=== PATIENT | female | born 1980 | race Caucasian/White ===

== ENCOUNTER 2022-01-27 12:47 | Emergency (ER) | payer SELFPAY ==
[2022-01-27 12:55] VITALS: BP 149/65; PULSE 81; RESP 20; TEMP 36.6; O2SAT 100; BMI 20.7
--- NOTE | 2022-01-27 13:06 | DI.RAD.S_ITS ---
PROCEDURE: XR CHEST 2V INDICATIONS: shortness of breath TECHNIQUE: 2 views of the chest were acquired. COMPARISON: None. FINDINGS: Surgical changes and devices: None. Lungs and pleura: Lungs are clear. No pleural effusions or pneumothorax. Mediastinum: Mediastinal contours are normal. Heart size is normal. Bones and chest wall: No suspicious bony abnormalities. Soft tissues appear unremarkable. IMPRESSION: No acute cardiopulmonary process demonstrated radiographically. Dictated by: Faizan Parham M.D. on 01/27/2022 at 13:49 Approved by: Faizan Parham M.D. on 01/27/2022 at 13:49
--- NOTE | 2022-01-27 13:21 | ED_ITS ---
HPI - SOB/Dyspnea General Chief Complaint: Shortness of Breath/Dyspnea Stated Complaint: Swelling in knees down to toes, SOB Time Seen by Provider: 01/27/22 13:16 Source: patient Mode of arrival: Ambulatory Limitations: no limitations History of Present Illness HPI Narrative: Patient is a healthy 41-year-old female who presents with increasing shortness with exertion. For about the last 5 days she has noted increasing bilateral swelling her legs. She has a BMI of 20 and is quite thin but it is obvious she has swelling in her feet. She denies any orthopnea. She denies any fever chills no chest pain. She says that they did travel in [place] car [place] she is not on any control. Mom denies any prior history of blood clot. She says that she is a former smoker of cigarettes but now it is vaping. Related Data Home Medications Medication Instructions Recorded Confirmed No Known Home Medications 01/27/22 01/27/22 Allergies Allergy/AdvReac Type Severity Reaction Status Date / Time Penicillins Allergy Swelling Verified 01/27/22 13:05 of Lip/Tongue/Throat Review of Systems Review of Systems Narrative: GENERAL: Denies chills, fatigue, malaise, fever, sweats, travel HEENT: Denies sinus pain, ear pain, sore throat, difficulty swallowing, neck pain RESPIRATORY: See HPI CARDIOVASCULAR: Denies chest pain, palpitations, orthopnea, edema GASTROINTESTINAL: Denies nausea, vomiting, abdominal pain, diarrhea, constipation, melena. : Denies dysuria, frequency, incontinence, hematuria, urinary retention, flank pain. MUSCULOSKELETAL: Denies weakness, joint pain, or bony pain SKIN: No rash, no erythema, no pruritus NEUROLOGIC: Denies weakness, dizziness, headache, numbness, change in speech, confusion PSYCHIATRIC: No concerning psychosocial issues. 12 point review of systems is negative except for those stated above and HPI Patient History Social History Smoking Status: Former smoker Smoking Status: Former smoker tobacco type: cigarettes and vaping alcohol intake frequency: a few times a week Substance Use Type: does not use Exam Initial Vital Signs Initial Vital Signs: Vital Signs Temperature 98 F 01/27/22 12:55 Pulse Rate 81 01/27/22 12:55 Respiratory Rate 20 01/27/22 12:55 Blood Pressure 149/65 H 01/27/22 12:55 Pulse Oximetry 100 01/27/22 12:55 Oxygen Delivery Method 01/27/22 12:55 GENERAL: Thin well-appearing 42-year-old female no acute distress HEENT: Head atraumatic,EOMI, pupils reactive, face symmetric, moist mucous membranes CARDIOVASCULAR: Regular rate and rhythm without murmurs, rubs or gallops. RESPIRATORY: Breath sounds equal bilaterally, no wheezes rales or rhonchi. ABDOMEN: Soft, nontender. Normoactive bowel sounds all 4 quadrants. No guarding or rebound. EXTREMITIES: Normal range of motion, no clubbing. Bilateral lower extremity edema nonpitting. Neurovascularly intact NEUROLOGICAL: Alert and oriented x4.Normal gait and speech. SKIN: Warm, dry, no laceration, no petechiae, no rashes or lesions. Course Orders Ordered: ED Orders 01/27/22 13:06 XR chest 2V Stat EKG-12 Lead Stat Measure peak expiratory flow ONCE RT Consult Eval and Treat Now 01/27/22 13:09 COVID19 -Nasal RAPID/Pre-Proc Stat 01/27/22 13:35 Complete Blood Count AUTO DIFF Stat Comprehensive Metabolic Panel Stat D Dimer Stat Lactate (Lactic Acid) Stat NT-proBNP (BNP-Adult 18+) Stat Troponin & CK Cardiac Panel Stat Vital Signs Vital signs: Vital Signs - 8 hr 01/27/22 12:55 01/27/22 14:44 Temperature 98 F Pulse Rate 81 71 Respiratory Rate 20 18 Blood Pressure 149/65 H 124/71 Pulse Oximetry 100 100 Oxygen Delivery Method Room Air Room Air MDM - SOB/Dyspnea Lab Data Result diagrams: 01/27/22 13:35 01/27/22 13:35 Labs: Lab Results 01/27/22 01/27/22 01/27/22 Range/Units 13:09 13:35 13:35 WBC 5.0 (4.5-11.0) X10^3/uL RBC 3.78 L (4.0-5.2) X10^6/uL Hgb 12.7 (12.0-16.0) g/dL Hct 36.4 (36-46) % MCV 96.3 (80-100) fL MCH 33.5 (26-34) PG MCHC 34.8 (30-36) % RDW 12.8 (11.6-14.8) % Plt Count 205 (150-400) X10^3/uL Neut % (Auto) 65.0 (50-75) % Lymph % (Auto) 24.6 L (25-40) % Alpine % (Auto) 8.0 (3-14) % Eos % (Auto) 1.9 L (2-4) % Baso % (Auto) 0.5 (0-2) % Neut # (Auto) 3300 (3751-1659) /uL Lymph # (Auto) 1200 (1679-6080) /uL Alpine # (Auto) 400 (0-900) /uL Eos # (Auto) 100 (0-450) /uL Baso # (Auto) 0 (0-100) /uL D-Dimer (<230) ng/mL Sodium 137 (137-145) mmol/L Potassium 4.1 (3.4-5.1) mmol/L Chloride 106 (98-107) mmol/L Carbon Dioxide 26 (22-32) mmol/L BUN 9 (7-17) mg/dL Creatinine 0.63 (0.52-1.04) mg/dL Estimated GFR > 60 (>60) mL/min BUN/Creatinine Ratio 14.3 (6-22) Glucose 110 H (70-100) mg/dL Lactate (0.7-2.1) mmol/L Calcium 8.5 (8.4-10.2) mg/dL Total Bilirubin 0.3 (0.2-1.3) mg/dL AST 34 (14-36) IU/L ALT 22 (<35) IU/L Alkaline Phosphatase 64 (38-126) U/L Total Creatine Kinase 40 (30-135) U/L CK-MB (CK-2) TNP CK-MB (CK-2) Rel Index TNP Troponin I < 0.012 (0.01-0.034) ng/mL NT-Pro-B Natriuret Pep 268 H (<125) pg/mL Total Protein 6.6 (6.3-8.2) g/dL Albumin 3.9 (3.5-5.0) g/dL Globulin 2.7 (1.7-4.1) g/dL Albumin/Globulin Ratio 1.4 (1.0-2.8) SARS-CoV-2 (PCR) Positive H (Negative) 08/02/22 08/02/22 Range/Units 13:35 13:35 WBC (4.5-11.0) X10^3/uL RBC (4.0-5.2) X10^6/uL Hgb (12.0-16.0) g/dL Hct (36-46) % MCV (80-100) fL MCH (26-34) PG MCHC (30-36) % RDW (11.6-14.8) % Plt Count (150-400) X10^3/uL Neut % (Auto) (50-75) % Lymph % (Auto) (25-40) % Alpine % (Auto) (3-14) % Eos % (Auto) (2-4) % Baso % (Auto) (0-2) % Neut # (Auto) (9410-0307) /uL Lymph # (Auto) (4052-1733) /uL Alpine # (Auto) (0-900) /uL Eos # (Auto) (0-450) /uL Baso # (Auto) (0-100) /uL D-Dimer < 200 (<230) ng/mL Sodium (137-145) mmol/L Potassium (3.4-5.1) mmol/L Chloride (98-107) mmol/L Carbon Dioxide (22-32) mmol/L BUN (7-17) mg/dL Creatinine (0.52-1.04) mg/dL Estimated GFR (>60) mL/min BUN/Creatinine Ratio (6-22) Glucose (70-100) mg/dL Lactate 1.7 (0.7-2.1) mmol/L Calcium (8.4-10.2) mg/dL Total Bilirubin (0.2-1.3) mg/dL AST (14-36) IU/L ALT (<35) IU/L Alkaline Phosphatase (38-126) U/L Total Creatine Kinase (30-135) U/L CK-MB (CK-2) CK-MB (CK-2) Rel Index Troponin I (0.01-0.034) ng/mL NT-Pro-B Natriuret Pep (<125) pg/mL Total Protein (6.3-8.2) g/dL Albumin (3.5-5.0) g/dL Globulin (1.7-4.1) g/dL Albumin/Globulin Ratio (1.0-2.8) SARS-CoV-2 (PCR) (Negative) Imaging Data Chest x-ray: Radiologist's Impression: [address] [address] XRay Report Signed Patient: Tiffanie Brantley MR#: [id number] : 1980 Acct:[id number] Age/Sex: 41 / F Date of Service: 01/27/22 Loc: ED Accession Number: [id number] ?? Procedure: XR chest 2V Ordering Provider: Johana Kohler D.O. PROCEDURE:? XR CHEST 2V ? INDICATIONS:? shortness of breath ? TECHNIQUE:? 2 views of the chest were acquired.? ? COMPARISON:? None. ? FINDINGS:? ? Surgical changes and devices:? None.? ? Lungs and pleura:? Lungs are clear.? No pleural effusions or pneumothorax.? ? Mediastinum:? Mediastinal contours are normal.? Heart size is normal.? ? Bones and chest wall:? No suspicious bony abnormalities.? Soft tissues appear unremarkable.? ? IMPRESSION:? No acute cardiopulmonary process demonstrated radiographically. ? ? Dictated by: Faizan Parham M.D. on 01/27/2022 at 13:49 ? ? Approved by: Faizan Parham M.D. on 01/27/2022 at 13:49 ? ECG Data Interpretation: Normal sinus rhythm rate 67 AR interval 144 QRS [address] changes no T- wave inversion no prior MDM Narrative Medical decision making narrative: Patient is very thin she does have swelling of her feet I do not appreciate significant swelling to her knees. Blood work is overall reassuring negative D- dimer negative BNP EKG is normal. She is found to be COVID positive which may may not be contributing. At this time no need for admission. Discharge Plan Departure Patient Disposition: Home Clinical Impression: COVID-19 Instructions: DI for COVID-19 (Suspected or Confirmed ) Activity Restrictions/Additional Instructions: *You have been diagnosed with COVID-19 *What to do: At this time her blood work and x-ray were overall reassuring. You are positive for COVID. Quarantine for about 5 days. Monitor oxygen. *Continue to take medications as directed *Follow up with your primary care provider in 2-3 days or call [phone] *Return to ER if you should have oxygen less than 91%, increasing shortness of breath for not control or any new, worsening or concerning symptoms Prescriptions: No Action No Known Home Medications Visit Report Forms: Patient Portal/API
[2022-01-27 13:46] LABS: Add Manual Diff / Slide Review NO; Basophils Absolute Auto 0 /uL (0-100); Basophils Percent Auto 0.5 % (0-2); Eosinophils Absolute Auto 100 /uL (0-450); Eosinophils Percent Auto 1.9 % (2-4); Hematocrit 36.4 % (36-46); Hemoglobin 12.7 g/dL (12.0-16.0); Lymphocytes Absolute Auto 1200 /uL (1100-4500); Lymphocytes Percent Auto 24.6 % (25-40); Mean Corpuscular HGB Conc 34.8 % (30-36); Mean Corpuscular Hemoglobin 33.5 PG (26-34); Mean Corpuscular Volume 96.3 fL (80-100); Monocytes Absolute Auto 400 /uL (0-900); Neutrophils Absolute Auto 3300 /uL (1500-7000); Platelet Count 205 X10^3/uL (150-400); Red Blood Cell Count 3.78 X10^6/uL (4.0-5.2); Red Cell Distribution Width 12.8 % (11.6-14.8)
[2022-01-27 13:59] LABS: COVID19 -Nasal RAPID POSITIVE (Negative)
[2022-01-27 14:04] LABS: Alanine Aminotransferase 22 IU/L (<35); Albumin 3.9 g/dL (3.5-5.0); Albumin Globulin Ratio 1.4 (1.0-2.8); Alkaline Phosphatase 64 U/L (38-126); Aspartate Aminotransferase 34 IU/L (14-36); BUN Creatinine Ratio 14.3 (6-22); Bilirubin Total 0.3 mg/dL (0.2-1.3); Blood Urea Nitrogen 9 mg/dL (7-17); Calcium 8.5 mg/dL (8.4-10.2); Carbon Dioxide 26 mmol/L (22-32); Chloride 106 mmol/L (98-107); Creatine Kinase 40 U/L (30-135); Estimated Glomerular Filt Rate > 60 mL/min (>60); Globulin 2.7 g/dL (1.7-4.1); Glucose 110 mg/dL (70-100); HEMOLYSIS < 15 (0-50); Potassium 4.1 mmol/L (3.4-5.1); Sodium 137 mmol/L (137-145); Total Protein 6.6 g/dL (6.3-8.2)
[2022-01-27 14:05] LABS: Lactate (Lactic Acid) 1.7 mmol/L (0.7-2.1)
[2022-01-27 14:16] LABS: NT-proBNP (BNP-Adult 18+) 268 pg/mL (<125); Troponin I < 0.012 ng/mL (0.01-0.034)
[2022-01-27 14:23] LABS: D Dimer < 200 ng/mL (<230)
[2022-01-27 14:44] VITALS: BP 124/71; PULSE 71; RESP 18; O2SAT 100
== END 2022-01-27 14:45 | disposition home or self-care (01) ==
PROVIDERS: Emergency Provider Emergency Medicine
DX: U07.1 COVID-19 (principal)
CPT/HCPCS: 36415; 71046; 80053; 82550; 83605; 83880; 84484; 85025; 85379; 87635; 93005; 99284; C9803

== ENCOUNTER → 2022-07-03 12:01 | Outpatient (CLI) | payer SELFPAY ==
--- NOTE | 2022-07-03 12:01 | DI.MG.S_ITS ---
BILATERAL DIGITAL DIAGNOSTIC MAMMOGRAM 3D/2D: 07/03/2022 CLINICAL: Palpable right breast lump and focal pain. Comparison is made to exams dated: 02/19/2020 mammogram and 01/23/2014 mammogram - Outside facility. Both breasts are extremely dense, which lowers the sensitivity of mammography (category d />75% glandular tissue). There is an oval equal density focal asymmetry in the right breast at 10 o'clock posterior depth. This is not significantly changed. There are stable grouped punctate round calcifications in the left breast at 1 o'clock posterior depth. These have remained stable for over two years and are consistent with a benign process. No other significant masses or calcifications are seen in either breast. IMPRESSION: INCOMPLETE: NEEDS ADDITIONAL IMAGING EVALUATION The oval equal density focal asymmetry in the right breast at 10 o'clock posterior depth resembles a fibroadenoma and is indeterminate. An ultrasound is recommended for further evaluation and is scheduled to immediately follow this examination. Based on the Tyrer Cuzick model (a risk assessment model) the patient's lifetime risk is 12.6% and her 10 year risk is 2.0%. According to the ACR, ACS, and NCCN guidelines, an annual breast MRI exam along with mammogram is recommended if the patient's lifetime risk is 20% or greater. This exam was interpreted at Station ID: [id number]. NOTE: For mammograms, a report in lay terms will be sent to the patient. Approximately 15% of breast malignancies will not be visualized mammographically. In the management of a palpable breast mass, a negative mammogram must not discourage biopsy of a clinically suspicious lesion. Electronically Signed By: Zeeshan Singletary M.D. aty/:07/03/2022 15:04:15 ACR BI-RADS Category 0: Incomplete 3340F
--- NOTE | 2022-07-03 12:01 | DI.US.S_ITS ---
ULTRASOUND OF RIGHT BREAST AND AXILLA: 07/03/2022 CLINICAL: Palpable right breast lump and focal pain. Comparison is made to exams dated: 07/03/2022 mammogram - [facility], 02/19/2020 mammogram, 02/19/2020 ultrasound, 01/23/2014 mammogram, and 01/23/2014 ultrasound - Outside facility. Ultrasound of the right breast axilla was performed. There is a stable 1.6 cm x 0.8 cm x 1.4 cm wider than tall oval mass in the right breast at 10 o'clock posterior depth 11 cm from the nipple. This oval mass is hypoechoic and heterogeneously echogenic. Color flow imaging demonstrates that there is vascularity present. No significant abnormalities were seen sonographically in the right axilla. IMPRESSION: BENIGN There is no sonographic evidence of malignancy. The 1.6 cm x 0.8 cm x 1.4 cm wider than tall oval mass in the right breast most likely is a fibroadenoma and has remained stable for over 2 years and is consistent with a benign process. However, the patient reports that the mass is sensitive and painful to touch which may be related to irritation as it is very superficial in location. Recommend consideration for surgical consultation for excisional biopsy to confirm both histology of the mass as well as symptomatic relief. A 1 year screening mammogram is recommended. Findings and recommendations were conveyed to the patient during today's evaluation. This exam was interpreted at Station ID: [id number]. Electronically Signed By: Zeeshan Singletary M.D. aty/:07/03/2022 15:38:24 letter sent: Clinical Evaluation Ultrasound BI-RADS: 2 Benign
== END ==
PROVIDERS: PCP Registered Nurse Diabetes Educator; Referring Provider Registered Nurse Diabetes Educator; Visit Provider Registered Nurse Diabetes Educator
DX: R92.8 Other abnormal and inconclusive findings on diagnostic imaging of breast (principal); N63.11 Unspecified lump in the right breast, upper outer quadrant; N64.4 Mastodynia
CPT/HCPCS: 76642; 77066; G0279

== ENCOUNTER → 2022-07-20 09:07 | Outpatient (CLI) | payer SELFPAY ==
[2022-07-20 10:38] LABS: Cholesterol 218 mg/dL (140-199); Glucose 87 mg/dL (70-100); HDL Cholesterol 72 mg/dL (40-60); LDL Cholesterol Calculated 130 mg/dL (<100); Triglycerides 80 mg/dL (35-150)
[2022-07-20 11:07] LABS: TSH w/ Reflex to FT4 0.83 uIU/mL (0.47-4.68)
== END ==
PROVIDERS: PCP Registered Nurse Diabetes Educator; Referring Provider Registered Nurse Diabetes Educator; Visit Provider Registered Nurse Diabetes Educator
DX: Z00.00 Encounter for general adult medical examination without abnormal findings (principal)
CPT/HCPCS: 36415; 80061; 82947; 84443

== ENCOUNTER → 2023-02-02 12:24 | Outpatient (CLI) | payer SELFPAY | PROVIDERS: PCP Registered Nurse Diabetes Educator; Visit Provider Registered Nurse Diabetes Educator | DX: R30.0 Dysuria (principal); R35.0 Frequency of micturition | CPT/HCPCS: 87077; 87086; 87186 ==

== ENCOUNTER → 2024-01-03 11:27 | Outpatient (CLI) | payer OTHER, SELFPAY | PROVIDERS: PCP Registered Nurse Diabetes Educator; Visit Provider Registered Nurse | DX: R30.0 Dysuria (principal) | CPT/HCPCS: 87086 ==

== ENCOUNTER → 2024-01-06 13:06 | Outpatient (CLI) | payer OTHER, SELFPAY | PROVIDERS: PCP Registered Nurse Diabetes Educator; Visit Provider Physician Assistant | DX: R30.0 Dysuria (principal) | CPT/HCPCS: 87086 ==

== ENCOUNTER → 2024-02-23 09:25 | Outpatient (CLI) | payer OTHER, SELFPAY ==
[2024-02-23 12:27] LABS: Urine Chlamydia NOT DETECTED; Urine N gonorrhoeae NOT DETECTED
== END ==
PROVIDERS: PCP Registered Nurse Diabetes Educator; Visit Provider Registered Nurse Diabetes Educator
DX: R10.2 Pelvic and perineal pain (principal)
CPT/HCPCS: 87210; 87220; 87491; 87591

== ENCOUNTER 2024-10-02 08:40 | Emergency (ER) | payer OTHER, SELFPAY ==
[2024-10-02 08:50] VITALS: BP 161/79; PULSE 70; RESP 18; TEMP 36.6; O2SAT 100; BMI 22.3
--- NOTE | 2024-10-02 08:52 | EKG_ITS ---
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
--- NOTE | 2024-10-02 08:53 | ED.GENADULT ---
HPI - General Adult General Chief complaint: Chest Pain Stated complaint: Chest pain, SOB Pain under left rib cage Time Seen by Provider: 10/02/24 08:52 History of Present Illness HPI narrative: 44-year-old female was about to exercise at home this morning when she was bending over and then had a fairly violent single sneeze, thereafter felt anterior sternal discomfort, worse with truncal twisting movements and deep breathing. No recent cough fevers or chills. No nausea or vomiting. No head or neck discomfort. No falls or injuries otherwise recalled. She did take ibuprofen 800 mg oral tablet about 0700, the pain is slightly improved but still significant. Related Data Previous Rx's Medication Instructions Recorded ciprofloxacin HCl 500 mg tablet 500 mg PO BID #14 tabs 01/06/24 hydrocodone 5 mg-acetaminophen 325 1 tab PO Q6H PRN pain #14 tabs 10/02/24 mg tablet Allergies Allergy/AdvReac Type Severity Reaction Status Date / Time Penicillins Allergy Swelling Verified 02/23/24 08:39 of Lip/Tongue/Throat Patient History Medical History Scoliosis History of COVID-19 (01/27/22) Dyslipidemia Headache (~2012) Fractures Chicken pox (~1986) Pancreatitis (~2007) Surgical History Anesthesia History of section (~05/2001) Skin growth (~05/2013) History of appendectomy (~04/2008) Family History Grandfather Gout Grandfather Lung cancer Social History household members: significant other alcohol intake: current tobacco type: cigarettes and vaping alcohol intake frequency: a few times a week Exam Narrative Exam Narrative: GENERAL: Well-developed patient, in mild distress. HEAD: Atraumatic. Normocephalic. EYES: Pupils equal round and reactive. Extraocular motions intact. No scleral icterus. No injection or drainage. ENT: Nose without bleeding, purulent drainage. Throat without erythema, tonsillar hypertrophy or exudate. Airway patent. NECK: Trachea midline. Non tender CARDIOVASCULAR: Regular rate and rhythm without murmurs, gallops, or rubs. RESPIRATORY: Clear to auscultation. Breath sounds equal bilaterally. No wheezes, rales, or rhonchi. Mid parasternal tenderness without crepitance, no erythema, no subcutaneous emphysema, but there is tenderness which reproduces her anterior chest central pain symptoms GASTROINTESTINAL: Abdomen soft, non-tender, nondistended. EXTREMITIES: No edema or joint tenderness. BACK: Nontender without deformity or crepitance. No flank tenderness. NEURO: AOx3. Motor functions grossly nonfocal SKIN: No rash or erythema of visible areas Initial Vital Signs Initial Vital Signs: Vital Signs Temperature 97.8 F 10/02/24 08:50 Pulse Rate 70 10/02/24 08:50 Respiratory Rate 18 10/02/24 08:50 Blood Pressure 161/79 H 10/02/24 08:50 Pulse Oximetry 100 10/02/24 08:50 Oxygen Delivery Method Room Air 10/02/24 08:50 Course Orders Ordered: Discontinued Medications Hydrocodone Bitart/Acetaminophen (Hydrocodone/Acet 5/325 Tablet) 1 tab PO NOW ONE Stop: 10/02/24 09:13 Last Admin: 10/02/24 09:17 Dose: 0.5 tab Documented By: Vital Signs Vital signs: Vital Signs - 8 hr 10/02/24 08:50 Temperature 97.8 F Pulse Rate 70 Respiratory Rate 18 Blood Pressure 161/79 H Pulse Oximetry 100 Oxygen Delivery Method Room Air Medical Decision Making ECG Data Attestation: I personally reviewed and interpreted this ECG as follows: Interpretation: Normal sinus rhythm with rate of 63, no obvious ST segment elevation or depression changes. CO 156, QRS 70, QTC 407. [facility] Narrative Medical decision making narrative: 44-year-old female with sneezing episode at home about to start her exercise program this morning, with central anterior parasternal chest pain, reproducible on palpation, worse with deep inspiration. Screening EKG done at triage without obvious ischemic changes. Very likely musculoskeletal. Chest x-ray negative. Patient took adequate dose ibuprofen prior to arrival. We will hold Toradol for now. PO hydrocodone/APAP dose, Rx for further doses to use if needed. Continue OTC NSAIDs. FU with PCP advised if not better next 2-3 days. Return precautions discussed. Discussed impotance of analgesia and deep breathing and prevent of atelectasis/pneumonia. Home with family. Discharge Plan Departure Patient Disposition: Home Clinical Impression: Chest wall pain Instructions: DI for Costochondritis Activity Restrictions/Additional Instructions: Sneezing episode while bending over this morning about to start exercise routine at home, with anterior chest discomfort. Reproducible on palpation along her sternum, likely musculoskeletal in nature. EKG without obvious ischemic changes, doubt acute cardiac event at this time. Chest x-ray without obvious lung collapse or acute changes. You had taken an adequate dose of ibuprofen prior to arrival, with some slight decrease in symptoms. Additional pain medication discussed, you were given hydrocodone/acetaminophen tablet, driven home by your daughter. Prescription for further pain medications to use if needed sent to your pharmacy. Continue use of your [id number] ibuprofen at same 800 mg dose, you can take this 3-4 times daily, as long as it does not seem to be upsetting her stomach. Consider recheck of your symptoms and examination with your regular doctor if not improving in the next couple of days. Return to this/nearest emergency department for any change worsening symptoms or any concerns prior. Prescriptions: New hydrocodone-acetaminophen 5-325 mg tablet 1 tab PO Q6H PRN (Reason: pain) Qty: 14 0RF No Action ciprofloxacin HCl 500 mg tablet 500 mg PO BID Qty: 14 0RF Referrals: Kennedy Holguin ARNP [Primary Care Provider] - Stand Alone Forms: Patient Portal/API/Survey
--- NOTE | 2024-10-02 09:11 | DI.RAD.S_ITS ---
PROCEDURE: XR CHEST 2V INDICATIONS: chest pain TECHNIQUE: 2 views of the chest were acquired. COMPARISON: [facility], CR, XR CHEST 2V, 01/27/2022, 13:12. FINDINGS: Surgical changes and devices: None. Lungs and pleura: Lungs are clear. No pleural effusions or pneumothorax. Mediastinum: Mediastinal contours are normal. Heart size is normal. Bones and chest wall: No suspicious bony abnormalities. Soft tissues appear unremarkable. IMPRESSION: No acute cardiopulmonary abnormality is seen. Dictated by: Derrell Stinson M.D. on 10/02/2024 at 10:01 Approved by: Derrell Stinson M.D. on 10/02/2024 at 10:02
[2024-10-02] MEDS: HYDROCODONE/ACET 5/325 TABLET 1 TAB PO (09:17)
--- NOTE | 2024-10-02 09:20 | PC.NURSE ---
Pt requesting to take only half of a norco. aware.
[2024-10-02 09:55] VITALS: BP 122/78; PULSE 68; RESP 16; TEMP 36.9; O2SAT 99
== END 2024-10-02 10:01 | disposition home or self-care (01) ==
PROVIDERS: Emergency Provider Emergency Medicine; PCP Registered Nurse Diabetes Educator
DX: R07.89 Other chest pain (principal)
CPT/HCPCS: 71046; 93005; 99283; 99284